=== PATIENT | female | born 1950 | race Two or more races ===

== ENCOUNTER 2024-11-12 22:28 | Emergency (ER) | payer OTHER ==
[~2024-11-12] VITALS: Ht 160 cm; Wt 64.9 kg
[~2024-11-12 22:28] MED LIST: AMOX1TAB12 PO; BUCALSEP SPRAY30 ML MM; KETO10TA2 PO
[2024-11-13] MEDS ORDERED: 0.9 % SODIUM CHLORIDE 500 ML IV STA (02:27)
[2024-11-13] MEDS ORDERED: MECLIZINE HCL 25 MG TABLET PO STA (02:27)
[2024-11-13 05:05] LABS: BASO % 0.4 % (0.1-1.2); EOS # 1.11 (0.04-0.54); EOS % 13.4 % (0.7-7.0); LYMPH # 2.68 (1.18-3.74); LYMPH % 32.4 % (19.3-53.1); MEAN PLATELET VOLUME 11.60 fl (9.4-12.4); MONO # 0.80 (0.24-0.82); MONO % 9.7 % (4.7-12.5); NEUT # 3.64 (1.56-6.13); NEUT % 43.9 % (34.0-71.1); RED CELL DISTRIBUTION WIDTH 11.8 % (11.6-14.4)
[2024-11-13] MEDS ORDERED: CLONIDINE HCL 0.1 MG TABLET PO STA (05:16)
[2024-11-13 05:46] LABS: ALT/SGPT 24.0 U/L (12-78); AST/SGOT 17.0 U/L (15-37); BILIRUBIN TOTAL 0.39 mg/dL (0.3-1.2); BUN CREA RATIO 28.0 (7.0-25.0); CREATININE SERUM 0.79 mg/dL (0.55-1.02); GFR 71.34; GLOBULINA 4.3 G/DL (2.4-3.5); GLUCOSE FASTING 135.0 mg/dL (65-100); OSMOLALITY SERUM 288.0 MOSM/KG (275-295)
== END 2024-11-13 06:47 | disposition home or self-care (01) ==
LOC: ER 22:28
DX: H81.10 Benign paroxysmal vertigo, unspecified ear (principal); I10 Essential (primary) hypertension; E11.9 Type 2 diabetes mellitus without complications